=== PATIENT | female | born 1960 | race Caucasian/White ===

== ENCOUNTER → 2016-12-14 | Outpatient (CLI) | payer OTHER ==
--- NOTE | 2016-12-14 10:30 | MA ---
Screening Digital Mammogram With Tomosynthesis Clinical Indications: Routine screening. Technique: Standard digital cephalocaudal and tomosynthesis mediolateral oblique projections are obt ained. The digital images were processed by the [employer] computer aided detection system. Comparison: November 2015, November 2014, November 2013, November 2012 and October 2011 Breast density: B; There are scattered fibroglandular densities. Findings: CAD was reviewed. Possibly a new small nodular density deep in the outer right breast seen only on the cc view. If real this may have microlobulated margins. The remainder of the left and righ t breast are stable. Impression: Possible developing nodule deep in the outer left breast. Recommendation: Spot compression view in the CC projection. If persistent, attempt to localize in th e orthogonal plane mammographically, and then proceed to ultrasound at the discretion of the [facility] radiologist. BI-RADS 0. Additional imaging required of the left breast. [facility] will send a result letter to the patient. Negative mammography should not preclude additional workup of a clinically suspicious finding. The patient's information is entered into a reminder system with a target due date for her next mammo gram.
== END ==
LOC: FIMAGING 09:35
DX: Z12.31 Encounter for screening mammogram for malignant neoplasm of breast (principal)
CPT/HCPCS: G0202

== ENCOUNTER → 2016-12-25 | Outpatient (CLI) | payer OTHER ==
--- NOTE | 2016-12-25 14:54 | MA ---
Diagnostic Digital Mammogram Left Breast With iCAD Analysis Reason for examination: Evaluate possible developing nodule in the far posterior slightly outer left breast noted only on the craniocaudal view from the screening tomographic study December 14, 2016. Technique: A small paddle craniocaudal spot compression view is obtained. Also, a true lateral is pe rformed. The examination is processed by the [employer] computer-aided detection system. Findings: The abnormality does not persist on diagnostic evaluation and it was probably related to nath perimposition of normal glandular elements on the screening study. Impression: Negative diagnostic mammography. BI-RADS: 1. Recommendation: Resume routine mammographic screening in one year as long as physical examination is negative. A verbal report was given to the patient. [facility] with send a result letter.
--- NOTE | 2016-12-27 08:39 | DX ---
DEXA Bone Densitometry Technique: DEXA scan was performed on [employer] W Bone Densitometer Indication: Prior wrist fracture Comparator Study: April 2014 Results: Lumbar Spine BMD: 0.794 T-score: -2.3 Prior BMD: 0.830 % change: -4.4% Total Hip (Right) BMD: 0.770 T-score: -1.4 Femoral Neck (Right) BMD: 0.655 T-score: -1.7 Total Hip (Left) BMD: 0.783 T-score: -1.3 Prior BMD: 0.800 % change: -2.1% Femoral Neck (Left) BMD: 0.632 T-score: -2.0 1/3 Radius BMD: 0.575 T-score: -1.9 % change: -8.1% CONCLUSION: Osteopenia In comparison the previous study from April 2014 the patient measured BMD in the lumbar spine has decr eased significantly. The patient's measured BMD in the total hip has not changed significantly. The p atient's measured BMD in the forearm has decreased significantly ADDITIONAL COMMENTS: By FRAX calculation, the estimated 10 year probability of any major osteoporotic fracture is 14% and the estimated 10 year probability of hip fracture is 1.8% Consider repeating the study in 2 years NOTE: The risk of osteoporotic fractures increases approximately twofold for each 1.0 SD decrease in T-score. The T-score represents the standard deviations from a young normal, same sex, reference po pulation. Low bone density is not the only risk factor for fracture. Clinical factors to consider include fall risk, previous osteoporotic fractures, family history of fractures, smoking, and low body weight. Patients who have an unexpectedly low BMD may need to be evaluated for secondary causes of low bone m ineral density. In comparing the present study to a prior study, lack of a significant increase or decrease in BMD ma y signify efficacy of the patient's present treatment. Bone mineral density measurements performed with densitometers produced by different manufacturers ar e not comparable. For the most reproducible BMD measurement, subsequent exams should be performed on the same densitometer.
== END ==
LOC: FIMAGING 14:09
PROVIDERS: ATTEND Internal Medicine
DX: M85.80 Other specified disorders of bone density and structure, unspecified site (principal); R92.8 Other abnormal and inconclusive findings on diagnostic imaging of breast
CPT/HCPCS: G0206

== ENCOUNTER → 2017-12-23 | Outpatient (CLI) | payer OTHER | LOC: FIMAGING 08:00 | PROVIDERS: ATTEND Internal Medicine | DX: Z12.31 Encounter for screening mammogram for malignant neoplasm of breast (principal); Z80.3 Family history of malignant neoplasm of breast ==

== ENCOUNTER → 2018-09-02 | Outpatient (CLI) | payer BC | LOC: BMCIMAGING 12:54 | PROVIDERS: ATTEND Internal Medicine | DX: M25.562 Pain in left knee (principal); M71.22 Synovial cyst of popliteal space [Baker], left knee; R93.6 Abnormal findings on diagnostic imaging of limbs ==

== ENCOUNTER → 2018-10-10 | Outpatient (CLI) | payer BC | LOC: BMCIMAGING 11:06 | PROVIDERS: ATTEND Internal Medicine | DX: Z13.820 Encounter for screening for osteoporosis (principal); M81.0 Age-related osteoporosis without current pathological fracture; Z78.0 Asymptomatic menopausal state; Z87.81 Personal history of (healed) traumatic fracture ==

== ENCOUNTER → 2019-02-02 | Outpatient (CLI) | payer BC | LOC: BMCIMAGING 16:25 | PROVIDERS: ATTEND Internal Medicine | DX: J98.4 Other disorders of lung (principal); R05 Cough; R06.2 Wheezing ==